=== PATIENT | female | born 1990 | race Caucasian/White ===

== ENCOUNTER → 2024-03-08 12:46 | Outpatient (CLI) | payer OTHER, SELFPAY ==
--- NOTE | 2024-03-08 12:51 | DI.RAD.S_ITS ---
PROCEDURE: XR WRIST LT MIN 3V INDICATIONS: L and I, wrist contusion TECHNIQUE: For views of the wrist were acquired. COMPARISON: Merged With [facility], CR, XR HAND 3+ VIEWS LEFT, 12/06/2022, 14:00. FINDINGS: Bones: An ill-defined sclerotic lesion is present within the distal ulna. This appears unchanged from the study dated December 06, 2022. No acute fracture or dislocation. Soft tissues: No suspicious soft tissue calcifications. IMPRESSION: 1. No acute radiographic findings. 2. Ill-defined medullary, sclerotic lesion within the distal ulna. The significance of this finding is unclear and appears unchanged from the study dated December 06, 2022. This finding may represent an enchondroma. Please correlate clinically, if the patient endorses focal pain in this region, further characterization with MRI could be used. However, given the stability over time, this suggests a benign finding. Dictated by: Zoraida Pulido M.D. on 03/08/2024 at 16:22 Approved by: Zoraida Pulido M.D. on 03/08/2024 at 16:24
== END ==
PROVIDERS: Referring Provider Nurse Practitioner Family; Visit Provider Nurse Practitioner Family
DX: S60.212A Contusion of left wrist, initial encounter (principal); M89.9 Disorder of bone, unspecified; X58.XXXA Exposure to other specified factors, initial encounter
CPT/HCPCS: 73110

== ENCOUNTER → 2024-08-07 14:03 | Outpatient (CLI) | payer OTHER, MEDICAID, SELFPAY | PROVIDERS: Visit Provider Physician Assistant Surgical | DX: R30.0 Dysuria (principal) | CPT/HCPCS: 87077; 87086 ==

== ENCOUNTER 2025-05-07 18:25 | Emergency (ER) | payer MEDICAID, OTHER, SELFPAY ==
[2025-05-07 18:49] VITALS: BP 142/95; PULSE 127; RESP 18; TEMP 37; O2SAT 95; BMI 23.7
--- NOTE | 2025-05-07 18:55 | DI.RAD.S_ITS ---
PROCEDURE: XR ANKLE RT MIN 3V INDICATIONS: fall TECHNIQUE: 3 views of the ankle were acquired. COMPARISON: None. FINDINGS: Bones: No acute fractures or dislocations. Ankle mortise is normally aligned. No suspicious bony lesions. Soft tissues: No tibiotalar joint effusion. Achilles tendon appears normal. Lateral malleolar soft tissue edema. IMPRESSION: Lateral malleolar soft tissue swelling without underlying fracture or dislocation. If there is persistent clinical concern for occult fracture given adequate mechanism of injury, consider repeat imaging in 10-14 days. Dictated by: Prieto Bright M.D. on 05/07/2025 at 20:09 Approved by: Prieto Bright M.D. on 05/07/2025 at 20:10
[2025-05-07] MEDS: IBUPROFEN 400 MG TABLET 800 MG PO (20:24)
[2025-05-07 22:33] VITALS: BP 155/100; PULSE 100; RESP 16; O2SAT 95
--- NOTE | 2025-05-07 23:43 | ED.LOWEXIN ---
HPI - Extremity Injury (Lower) General Chief Complaint: Extremity Injury, Lower Stated Complaint: fell, RT ankle rolled Time Seen by Provider: 05/07/25 23:38 Source: patient Mode of arrival: Wheelchair History of Present Illness HPI Narrative: 34-year-old woman with self-described lack of melquiades and history of falling and missed steps. She has had prior right knee surgery. She was outside, her mom was then even she had a right ankle injury with an eversion, heard a loud pop, noticed immediate swelling is now having some bruising comes in for further evaluation. She is not complaining of knee or hip pain and has no other injuries Related Data Home Medications ?Medication ?Instructions ?Recorded ?Confirmed bupropion HCl 150 mg 24 hr tablet, 150 mg PO QAM 03/08/24 08/07/24 extended release (Wellbutrin XL) norethindrone (contraceptive) 0.35 0.35 mg PO DAILY 08/07/24 08/07/24 mg tablet (Jencycla) Allergies Allergy/AdvReac Type Severity Reaction Status Date / Time No Known Drug Allergies Allergy Verified 05/07/25 18:51 Review of Systems Review of Systems Narrative: Pertinent positive and negative findings as per HPI Exam Initial Vital Signs Initial Vital Signs: Vital Signs Temperature 98.6 F 05/07/25 18:49 Pulse Rate 127 H 05/07/25 18:49 Respiratory Rate 18 05/07/25 18:49 Blood Pressure 142/95 H 05/07/25 18:49 Pulse Oximetry 95 05/07/25 18:49 Oxygen Delivery Method Room Air 05/07/25 18:49 General: Alert appropriate in no acute distress Respiratory: Able to speak in full sentences, no obvious respiratory distress Skin: No obvious rashes, warm and dry Neurologic: Grossly intact no obvious asymmetries or abnormalities Psych: appropriate insight and affect, cooperative Extremity: Right ankle with swelling and contusion to the lateral aspect. Distally intact. Course Orders Ordered: ED Orders 05/07/25 18:55 XR ankle RT min 3V Stat Discontinued Medications Ibuprofen (Ibuprofen 400 Mg Tablet) 800 mg PO NOW ONE Stop: 05/07/25 20:15 Last Admin: 05/07/25 20:24 Dose: 800 mg Documented By: ALIX Vital Signs Vital signs: Vital Signs - 8 hr 05/07/25 18:49 05/07/25 22:33 Temperature 98.6 F Pulse Rate 127 H 100 H Respiratory Rate 18 16 Blood Pressure 142/95 H 155/100 H Pulse Oximetry 95 95 Oxygen Delivery Method Room Air Room Air MDM - Extremity Injury (Lower) MDM Narrative Medical decision making narrative: 34-year-old woman with an eversion ankle injury right side no evidence of fracture on x-ray significant swelling, hematoma and tenderness. An ankle air splint is placed by nursing staff which does help with additional support for pain control. She is neurovascularly intact pre and post placement. Patient has her own crutches available at home. She was initially given ibuprofen and Tylenol which was minimally effective in controlling her pain. She will be given a small dose of Percocet to use for additional pain control and we will need to follow up with her primary care physician if symptoms are not significantly improving. She is safe for discharge home Discharge Plan Departure Patient Disposition: Home Clinical Impression: Right ankle sprain Qualifiers: Encounter type: initial encounter Involved ligament of ankle: unspecified ligament Qualified Code(s): S93.401A - Sprain of unspecified ligament of right ankle, initial encounter Instructions: DI for Ankle Sprain Activity Restrictions/Additional Instructions: Thank you for coming into [facility], you did not break your ankle. You do obviously have a sprain and you are going to hurt more over the next 1-2 days. In the ER you were given an air ankle stirrup splint. Please continue to use this as long as it provides comfort for you. You can advance walking as you are able to tolerate. Would recommend crutches for a couple of days to make sure that you do not accidentally fall secondary to pain Using 400 mg of ibuprofen (2 [id number] pills) and 1 Tylenol every 6 hours can be very helpful in controlling pain. For severe pain you can use 400 mg of ibuprofen and 1 Percocet which has Tylenol plus oxycodone in it. 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 Prescriptions: No Action norethindrone (contraceptive) [Jencycla] 0.35 mg tablet 0.35 mg PO DAILY bupropion HCl [Wellbutrin XL] 150 mg tablet extended release 24 hr 150 mg PO QAM Referrals: Miscellaneous,Doctor, MD [Primary Care Provider, Medical] Stand Alone Forms: Patient Portal/API
[2025-05-07] MEDS: OXYCODONE/ACETAMINOPHEN 5/325 TABLET 1 TAB PO (23:55)
[2025-05-07] MEDS: OXYCODONE/APAP 5/325 PREPACK 1 BOTTLE MISC (23:55)
[2025-05-07 23:56] VITALS: BP 124/89; PULSE 130; RESP 17; O2SAT 97
== END 2025-05-07 23:57 | disposition home or self-care (01) ==
PROVIDERS: Emergency Provider Emergency Medicine
DX: S93.401A Sprain of unspecified ligament of right ankle, initial encounter (principal); X50.1XXA Overexertion from prolonged static or awkward postures, initial encounter
CPT/HCPCS: 73610; 99283